=== PATIENT | male | born 1965 | race Hispanic/Latino ===

== ENCOUNTER 2022-02-25 06:28 | Day surgery (SDC) | payer OTHER ==
[2022-02-23 10:13] LABS: BASOPHILS % (AUTO) 0.6 % (0.0-5.0); EOSINOPHILS % (AUTO) 2.5 % (0.0-8.0); HEMATOCRIT 45.8 % (42-54); LYMPHOCYTES % (AUTO) 21.7 % (21.0-51.0); MEAN CORPUSCULAR HEMOGLOBIN 30.2 pg (27.0-33.0); MEAN CORPUSCULAR HGB CONC 33.2 g/dL (32.0-36.0); MEAN CORPUSCULAR VOLUME 91.1 fL (79-99); MONOCYTES % (AUTO) 9.1 % (3.0-13.0); NEUTROPHILS % (AUTO) 65.2 % (40.0-77.0); PLATELET COUNT (AUTO) 294 K/uL (130-400); RED BLOOD CELL COUNT(AUTO) 5.03 MIL/uL (4.50-6.20); RED CELL DISTRIBUTION WIDTH 15.3 % (11.0-15.5)
[2022-02-23 10:21] LABS: POTASSIUM 3.7 mmol/L (3.5-5.1)
[2022-02-24 14:04] VITALS: BP 159/91
[2022-02-25] VITALS (18 sets, daily range): BP systolic 110–153; BP diastolic 70–82
[~2022-02-25] VITALS: Ht 170.2 cm; Wt 117.2 kg
[2022-02-25] MEDS: CEFAZOLIN SODIUM 1 GM VIAL IVP SCH ×2 (06:00→08:34)
[~2022-02-25 06:28] MED LIST: ACET-66 PO; ASPI-449 PO; ATOR40TA71 PO; DOCU100T PO; IBUP-2077 PO; LISI1TAB49 PO; SILD50TA PO; SUCR1TAB2 PO
[2022-02-25] MEDS ORDERED: LACTATED RINGERS 1000ML 1,000 ML IV ONE (07:07)
[2022-02-25] MEDS ORDERED: DEXAMETHASONE SOD PHOSPHATE 10MG/ML 1ML VIAL ONE (08:23)
[2022-02-25] MEDS ORDERED: LIDOCAINE PF 100MG/5ML (2%) SYRINGE 5ML ONE (08:23)
[2022-02-25] MEDS ORDERED: MIDAZOLAM HCL 1 MG/ML 2ML VIAL ONE (08:24)
[2022-02-25] MEDS ORDERED: PROPOFOL 10 MG/ML 20ML VIAL IV ONE (08:24)
[2022-02-25] MEDS ORDERED: FENTANYL CITRATE PF 50 MCG/1 ML 2ML VIAL ONE ×2 (08:24→08:54)
[2022-02-25] MEDS ORDERED: ONDANSETRON 4MG INJ ONE (08:24)
[2022-02-25] MEDS ORDERED: ACET-2079 PO (09:42)
[2022-02-25] MEDS ORDERED: CEPH500B PO (09:42)
[2022-02-25] MEDS ORDERED: ACETAMINOPHEN WITH CODEINE 1 TAB TAB ONE (11:14)
[2022-02-25] MEDS ORDERED: KETOROLAC 30MG VIAL (30MG/ML) ONE (11:19)
== END 2022-02-25 11:45 | disposition home or self-care (01) ==
LOC: DAH 06:28
PROVIDERS: ATTEND Orthopaedic Surgery
DX: M23.321 Other meniscus derangements, posterior horn of medial meniscus, right knee (principal); M17.11 Unilateral primary osteoarthritis, right knee; M25.461 Effusion, right knee; I11.9 Hypertensive heart disease without heart failure; Z82.49 Family history of ischemic heart disease and other diseases of the circulatory system; Z83.3 Family history of diabetes mellitus; Z87.891 Personal history of nicotine dependence; Z98.890 Other specified postprocedural states; Z79.899 Other long term (current) drug therapy
CPT/HCPCS: 29881; 36415; 80048; 85025; 87635; A4215; A4221; A4222; A4223; A4649; A4663; A4930; A6223; C9803; J0690; J1100; J1885; J2001; J2250; J2405; J2704; J3010 ×2; J7120

== ENCOUNTER 2022-11-26 12:00 | Inpatient (IN) | payer OTHER ==
[~2022-11-26] VITALS: Ht 170.2 cm; Wt 120.2 kg
[~2022-11-26 12:00] MED LIST changes: -ACET-66 PO; -DOCU100T PO; -IBUP-2077 PO; -SILD50TA PO; -SUCR1TAB2 PO
[2022-12-03 10:41] LABS: BASOPHILS % (AUTO) 0.6 % (0.0-5.0); EOSINOPHILS % (AUTO) 3.6 % (0.0-8.0); HEMATOCRIT 41.4 % (42-54); LYMPHOCYTES % (AUTO) 30.5 % (21.0-51.0); MEAN CORPUSCULAR HGB CONC 33.8 g/dL (32.0-36.0); MEAN CORPUSCULAR VOLUME 88.8 fL (79-99); NEUTROPHILS % (AUTO) 55.9 % (40.0-77.0); PLATELET COUNT (AUTO) 288 K/uL (130-400); RED BLOOD CELL COUNT(AUTO) 4.66 MIL/uL (4.50-6.20); RED CELL DISTRIBUTION WIDTH 14.6 % (11.0-15.5); WHITE BLOOD COUNT (AUTO) 9.8 K/uL (4.8-10.8)
[2022-12-03 10:47] LABS: ALBUMIN 3.3 g/dL (3.5-5.0); CARBON DIOXIDE 29 mmol/L (21-32); CHLORIDE 103 mmol/L (101-111); GLOMERULAR FILTR. RATE CALC 82 mL/min (>60); GLUCOSE,RANDOM 116 mg/dL (70-105); POTASSIUM 3.7 mmol/L (3.5-5.1); SODIUM SERUM 138 mmol/L (136-145); UREA NITROGEN, BLOOD 18 mg/dL (7-18)
[2022-12-03 10:48] LABS: CRP QUANTITATIVE < 2.00 mg/L (0.00-9.0)
[2022-12-03 10:51] LABS: INR 0.93 (0.85-1.15); PROTHROMBIN TIME 10.1 SEC (9.6-11.6)
[2022-12-03 10:52] LABS: PARTIAL THROMBOPLASTIN TIME 29.1 SEC (26.3-35.5)
[2022-12-03 10:53] LABS: APPEARANCE,URINE CLEAR (CLEAR); BILIRUBIN,URINE NEGATIVE (NEGATIVE); COLOR,URINE LIGHT-YELLOW (YELLOW); GLUCOSE, URINE (UA) NEGATIVE (NEGATIVE); KETONES,URINE NEGATIVE (NEGATIVE); LEUKOCYTE ESTERASE ,URINE NEGATIVE Leu/uL (NEGATIVE); NITRATE,URINE NEGATIVE (NEGATIVE); OCCULT BLOOD,URINE NEGATIVE (NEGATIVE); PH,URINE 5.5 (5.0-8.0); PROTEIN,URINE NEGATIVE (NEGATIVE); UROBILINOGEN,URINE 0.2 mg/dL (0.2-1.0)
[2022-12-03 10:58] VITALS: BP 124/70
[2022-12-03] MEDS ORDERED: NITR0.4T50 SL (11:52)
[2022-12-03] MEDS ORDERED: CARV25TA PO (11:52)
[2022-12-03] MEDS ORDERED: TRAM50TA4 PO (11:52)
[2022-12-03] MEDS ORDERED: GABA-529 PO (11:52)
[2022-12-06] VITALS (27 sets, daily range): BP systolic 119–149; BP diastolic 9–96
[2022-12-06] MEDS ORDERED: BUPIVACAINE/PF 0.5% 30ML VIAL ONE (04:44)
[2022-12-06] MEDS ORDERED: KETOROLAC 30MG VIAL (30MG/ML) ONE ×2 (04:44→10:22)
[2022-12-06] MEDS ORDERED: TRANEXAMIC ACID 1000MG/10ML ONE ×2 (04:44→06:54)
[2022-12-06] MEDS ORDERED: LACTATED RINGERS 1000ML 1,000 ML IV ONE (06:30)
[2022-12-06] MEDS ORDERED: CEFAZOLIN SODIUM 2 GM VIAL ONE (06:30)
[2022-12-06] MEDS ORDERED: CEFAZOLIN SODIUM 1 GM VIAL ONE (06:44)
[2022-12-06] MEDS ORDERED: LIDOCAINE PF 100MG/5ML (2%) SYRINGE 5ML ONE (07:19)
[2022-12-06] MEDS ORDERED: FENTANYL CITRATE PF 50 MCG/1 ML 5ML AMP IV ONE (07:20)
[2022-12-06] MEDS ORDERED: PROPOFOL 10 MG/ML 20ML VIAL IV ONE ×2 (07:20→09:18)
[2022-12-06] MEDS ORDERED: MIDAZOLAM HCL 1 MG/ML 2ML VIAL ONE (07:20)
[2022-12-06] MEDS ORDERED: ROCURONIUM 10MG/1ML SYR 10 MG/ML ML ONE (07:20)
[2022-12-06] MEDS ORDERED: DEXAMETHASONE SOD PHOSPHATE 10MG/ML 1ML VIAL ONE (07:31)
[2022-12-06] MEDS ORDERED: ONDANSETRON 4MG INJ ONE (07:38)
[2022-12-06] MEDS ORDERED: PHENYLEPHRINE HCL 10 MG/ML 1ML VIAL IV ONE (07:53)
[2022-12-06] MEDS ORDERED: CEFAZOLIN SODIUM 3 GM VIAL IV PRN (08:00)
[2022-12-06] MEDS ORDERED: TRANEXAMIC ACID 1000MG/10ML IV ONE (09:03)
[2022-12-06] MEDS ORDERED: GLYCOPYRROLATE 1 MG/5 ML SYRINGE ONE (09:14)
[2022-12-06] MEDS ORDERED: NEOSTIGMINE 5MG/5ML SYR IV ONE (09:14)
[2022-12-06] MEDS ORDERED: MEPERIDINE-PF 25 MG/ML SYG ONE ×2 (09:45→10:22)
[2022-12-06] MEDS ORDERED: CALCIUM CARB 500MG PO PRN (10:00)
[2022-12-06] MEDS ORDERED: LIDOCAINE HCL-MPF 1% 2ML VIAL IV PRN (10:00)
[2022-12-06] MEDS: 0.9%NACL 1000ML 1,000 ML IV SCH ×2 (10:00→20:00)
[2022-12-06] MEDS ORDERED: ONDANSETRON 4MG INJ IVP PRN (10:00)
[2022-12-06] MEDS ORDERED: FERROUS FUMARATE 324 MG TABLET PO PRN (10:00)
[2022-12-06] MEDS ORDERED: KCL 20 MEQ ERTAB PO PRN (10:00)
[2022-12-06] MEDS ORDERED: POTASSIUM CHLORIDE 20MEQ/100ML 100 ML IV PRN (10:00)
[2022-12-06] MEDS ORDERED: TRAMADOL HCL 50 MG TABLET PO PRN (10:00)
[2022-12-06] MEDS: KETOROLAC 15MG/ML VIAL (15MG/ML) IV SCH ×2 (10:00→18:00)
[2022-12-06] MEDS: HYDROCODONE/ACETAMINOPHEN 5/325 MG TAB PO PRN ×2 (11:32→21:10)
[2022-12-06] MEDS ORDERED: NITROGLYCERIN 0.4 MG SL TAB SL PRN (12:00)
[2022-12-06] MEDS: CEFAZOLIN SODIUM 1 GM VIAL IVP SCH ×2 (14:35→21:12)
[2022-12-06] MEDS: GABAPENTIN 100 MG CAPSULE PO SCH ×2 (14:38→21:09)
[2022-12-06] MEDS: KETOROLAC 15MG/ML VIAL (15MG/ML) IV PRN (15:42)
[2022-12-06] MEDS: DOCUSATE SODIUM 100 MG CAP PO SCH (21:09)
[2022-12-06] MEDS: CARVEDILOL 25 MG TABLET PO SCH (21:09)
[2022-12-07 00:22] VITALS: BP 151/83
[2022-12-07] MEDS: KETOROLAC 15MG/ML VIAL (15MG/ML) IV SCH (01:16)
[2022-12-07] MEDS: CYCLOBENZAPRINE HCL 10 MG TABLET PO PRN ×2 (01:29→20:11)
[2022-12-07] MEDS: HYDROCODONE/ACETAMINOPHEN 5/325 MG TAB PO PRN ×3 (02:12→20:11)
[2022-12-07] MEDS: DiphenhydrAMINE HCL 50 MG/ML VIAL IVP PRN ×2 (02:12→20:11)
[2022-12-07 04:47] VITALS: BP 153/84
[2022-12-07 04:56] LABS: HEMATOCRIT 34.7 % (42-54); MEAN CORPUSCULAR HEMOGLOBIN 30.3 pg (27.0-33.0); RED BLOOD CELL COUNT(AUTO) 3.9 MIL/uL (4.50-6.20); RED CELL DISTRIBUTION WIDTH 14.3 % (11.0-15.5); WHITE BLOOD COUNT (AUTO) 18.9 K/uL (4.8-10.8)
[2022-12-07 05:03] LABS: CREATININE 0.9 mg/dL (0.5-1.5); POTASSIUM 3.3 mmol/L (3.5-5.1)
[2022-12-07] MEDS: 0.9%NACL 1000ML 1,000 ML IV SCH (06:00)
[2022-12-07] MEDS: KETOROLAC 15MG/ML VIAL (15MG/ML) IV PRN ×2 (07:31→17:37)
[2022-12-07 07:56] VITALS: BP 153/95
[2022-12-07] MEDS: ASPIRIN 325MG TAB PO SCH (08:02)
[2022-12-07] MEDS: POLYETHYLENE GLYCOL 3350 17 GM POWD.PACK PO SCH (08:02)
[2022-12-07] MEDS: DOCUSATE SODIUM 100 MG CAP PO SCH ×2 (08:03→20:10)
[2022-12-07] MEDS: ATORVASTATIN 40 MG TABLET PO SCH (08:03)
[2022-12-07] MEDS: LISINOPRIL 10 MG TABLET PO SCH (08:03)
[2022-12-07] MEDS: HYDROCHLOROTHIAZIDE 25 MG TABLET PO SCH (08:03)
[2022-12-07] MEDS: CARVEDILOL 25 MG TABLET PO SCH ×2 (08:04→20:11)
[2022-12-07] MEDS: GABAPENTIN 100 MG CAPSULE PO SCH ×3 (08:04→20:13)
[2022-12-07] MEDS: POTASSIUM CHLORIDE 10% ELIXIR 20 MEQ/15 ML UDCUP PO PRN ×3 (08:05→17:37)
[2022-12-07 10:49] VITALS: BP 150/86
[2022-12-07 15:38] VITALS: BP 130/76
[2022-12-07 20:01] VITALS: BP 141/77
[2022-12-08 00:23] VITALS: BP 118/69
[2022-12-08 04:20] VITALS: BP 144/84
[2022-12-08] MEDS: HYDROCODONE/ACETAMINOPHEN 5/325 MG TAB PO PRN (04:29)
[2022-12-08 07:30] VITALS: BP 153/86
[2022-12-08] MEDS: HYDROCHLOROTHIAZIDE 25 MG TABLET PO SCH (08:32)
[2022-12-08] MEDS: GABAPENTIN 100 MG CAPSULE PO SCH ×2 (08:32→14:49)
[2022-12-08] MEDS: DOCUSATE SODIUM 100 MG CAP PO SCH (08:33)
[2022-12-08] MEDS: LISINOPRIL 10 MG TABLET PO SCH (08:33)
[2022-12-08] MEDS: ASPIRIN 325MG TAB PO SCH (08:33)
[2022-12-08] MEDS: POLYETHYLENE GLYCOL 3350 17 GM POWD.PACK PO SCH (08:34)
[2022-12-08] MEDS: CARVEDILOL 25 MG TABLET PO SCH (08:34)
[2022-12-08] MEDS: ATORVASTATIN 40 MG TABLET PO SCH (08:42)
[2022-12-08 11:44] VITALS: BP 129/81
[2022-12-08] MEDS ORDERED: GABA100C PO (15:02)
[2022-12-08] MEDS ORDERED: ASPI-1026 PO (15:02)
[2022-12-08] MEDS ORDERED: HYDR-4060 PO (15:02)
[2022-12-08] MEDS ORDERED: CYCL-309 PO (15:02)
[2022-12-08 15:30] VITALS: BP 141/80
[2022-12-08] MEDS ORDERED: LACTULOSE 20 GM/30 ML UDCUP PO SCH (15:30)
[2022-12-08] MEDS ORDERED: LACTULOSE 20 GM/30 ML UDCUP ONE (15:32)
[2022-12-09] MEDS ORDERED: BISACODYL 10 MG SUPP.RECT RC PRN (10:00)
== END 2022-12-08 17:30 | disposition home health service (06) | DRG 470 ==
LOC: DAHIP 12-06 05:58 → 4BH 12-06 11:25
PROVIDERS: ADMIT Student in an Organized Health Care Education/Training Program; ATTEND Student in an Organized Health Care Education/Training Program
PROC: 3E0T3BZ Introduction of Anesthetic Agent into Peripheral Nerves and Plexi, Percutaneous Approach (ICD-10-PCS; 2022-12-06)
PROC: 3E0T33Z Introduction of Anti-inflammatory into Peripheral Nerves and Plexi, Percutaneous Approach (ICD-10-PCS; 2022-12-06)
PROC: 0SRC0J9 Replacement of Right Knee Joint with Synthetic Substitute, Cemented, Open Approach (ICD-10-PCS; principal; 2022-12-06 07:58)
DX: M17.11 Unilateral primary osteoarthritis, right knee (principal); D62 Acute posthemorrhagic anemia; E87.1 Hypo-osmolality and hyponatremia; Z20.822 Contact with and (suspected) exposure to COVID-19; E87.6 Hypokalemia
CPT/HCPCS: 36415; 73560; 80048; 81003; 82040; 84134; 85025; 85027; 85610; 85730; 86140; 87088; 87426; 87641; 97039; G0378; J0690; J1100; J1200; J1885; J2001; J2175; J2250; J2370; J2405; J2704; J2710; J3010; J3490; J7120